=== PATIENT | female | born 1940 | race Caucasian/White ===

== ENCOUNTER → 2020-11-13 | Outpatient (CLI) | payer MEDICARE | END | disposition home or self-care (01) | LOC: RAH 12:56 | PROVIDERS: ATTEND Otolaryngology Plastic Surgery within the Head & Neck | DX: E04.2 Nontoxic multinodular goiter (principal) | CPT/HCPCS: 76536 ==

== ENCOUNTER → 2020-11-24 | Outpatient (CLI) | payer MEDICARE ==
[2020-11-24 09:05] LABS: INR 1.03 (0.85-1.15)
[2020-11-24 09:06] LABS: PARTIAL THROMBOPLASTIN TIME 31.3 SEC (26.3-35.5)
== END | disposition home or self-care (01) ==
LOC: RAH 07:34
PROVIDERS: ATTEND Otolaryngology Plastic Surgery within the Head & Neck
DX: E04.1 Nontoxic single thyroid nodule (principal)
CPT/HCPCS: 10005; 60100; 76942; 88172; 88173; 88177; 88305